=== PATIENT | female | born 1955 ===

== ENCOUNTER 2021-05-21 19:37 | Observation (INO) | payer MEDICARE, BC ==
[2021-05-21] MEDS ORDERED: Sodium Chloride 0.9% 10 ML Syringe FLUSH PRN (19:48)
[2021-05-21] MEDS ORDERED: Sodium Chloride 0.9% 2.5 ML Syringe FLUSH PRN (19:48)
[2021-05-21] MEDS ORDERED: Iopamidol 755 MG/ML 500 ML Multipack Bottle IVPUSH STA (20:27)
[2021-05-21 20:39] LABS: BLOOD UREA NITROGEN,BUN 13 mg/dL (7.0-18.0); CARBON DIOXIDE,CO2 30.6 mmol/L (21.0-32.0); CHLORIDE,CL 100 mmol/L (98-107); GLUCOSE RANDOM 115 mg/dL (74-106); POTASSIUM,K 4.1 mmol/L (3.5-5.1); SODIUM,NA 139 mmol/L (136-145)
[2021-05-22] MEDS ORDERED: Aspirin 81 MG Tab.Chew PO ONE (00:39)
[2021-05-22] MEDS: Carvedilol 25 MG Tab PO SCH ×2 (01:00→08:24)
[2021-05-22] MEDS ORDERED: Aspirin 81 MG Tab.Chew ONE (01:07)
[2021-05-22 06:27] LABS: HEMOGLOBIN A1C 6.1 %
[2021-05-22 06:32] LABS: CARBON DIOXIDE,CO2 28.8 mmol/L (21.0-32.0); POTASSIUM,K 4.1 mmol/L (3.5-5.1)
== END 2021-05-22 16:45 | disposition home or self-care (01) ==
LOC: MW.ED 19:37 → MW.MS 21:10
PROVIDERS: ADMIT Internal Medicine; ATTEND Internal Medicine
DX: R53.1 Weakness (principal); R47.01 Aphasia; U07.1 COVID-19; I42.9 Cardiomyopathy, unspecified; G47.30 Sleep apnea, unspecified; K21.9 Gastro-esophageal reflux disease without esophagitis; F32.A Depression, unspecified; F41.9 Anxiety disorder, unspecified; E66.9 Obesity, unspecified; Z79.899 Other long term (current) drug therapy; Z95.0 Presence of cardiac pacemaker; Z98.890 Other specified postprocedural states; Z79.82 Long term (current) use of aspirin
CPT/HCPCS: 36415; 70450; 70496; 70498; 71045; 80048; 80053; 80061; 81001; 82947; 83036; 84484; 85025; 85610; 93005; 93306; 99285; A9270; G0378; Q9967; 99218